=== PATIENT | female | born 1980 ===

== ENCOUNTER 2021-09-26 08:00 | Outpatient (CLI) | payer BC, OTHER ==
[2021-09-26 21:10] LABS: INFECTIOUS MONONUCLEOSIS NEGATIVE (Negative)
[2021-09-26 23:34] LABS: CHLAMYDIA TRACHOMATIS DNA NEGATIVE (NEGATIVE); NEISSERIA GONORRHOEAE DNA NEGATIVE (NEGATIVE); TRICHOMONAS VAGINALIS DNA NEGATIVE (NEGATIVE)
[2021-09-28 05:07] LABS: HIV SCREEN 4TH GENERATION Non Reactive (Non Reactive); RPR Non Reactive (Non Reactive)
[2021-09-28 07:07] LABS: HCV AB <0.1 s/co ratio (0.0-0.9)
[2021-09-28 08:07] LABS: HSV 2 IGG TYPE SPEC <0.91 index (0.00-0.90)
[2021-09-30 20:07] LABS: HSV IGM I/II COMBINATION <0.91 Ratio (0.00-0.90)
== END 2021-09-26 23:59 | disposition home or self-care (01) ==
LOC: LAB.N 08:00
PROVIDERS: ATTEND Registered Nurse
DX: R07.0 Pain in throat (principal); Z20.2 Contact with and (suspected) exposure to infections with a predominantly sexual mode of transmission
CPT/HCPCS: 36415; 81599; 86308; 86592; 86694; 86695; 86696; 86803; 87110; 87140; 87389; 87491; 87591; 87661